=== PATIENT | female | born 1980 | race Caucasian/White ===

== ENCOUNTER 2022-06-06 23:11 | Emergency (ER) | payer OTHER ==
--- OUTSIDE RECORDS SUMMARY | 2022-06-06 23:14 | XMS REPORT | Continuity of Care Document ---
:1980 Author Organization [facility] t Address [address] [place] [address] Care Team Providers Name Role Phone FOUND, PCP NOT Primary Care Physician Unavailable Rebecca Castellanos Attending Clinician DALI WASHINGTON Attending Clinician Unavailable KARLIE SUÁREZ Attending Clinician Unavailable ANGELICA KAUFMAN Attending Clinician Unavailable MONICA BELLA Attending Clinician Unavailable Payers Payer Name Policy Type Policy Number Effective Date Expiration Date S ource Problems Condition Condition Condition Status Onset Resolution Last Treating Co mments Source Name Details Category Date Date Treatment Clinician Date Problem Problem [facility] Allergies, Adverse Reactions, Alerts Allergy Allergy Status Severity Reaction(s) Onset Inactive Treating Comm ents Source Name Type Date Date Clinician Penicill Propensi Active Unknown - Patient Un argelia ins ty to See comments 06-05 reports ity of adverse 00:00: she's [place] reaction 00 been told Medic al s by family Branch she is allergic. PENICILL Drug Active Unknown-Cmnt Un argelia INS Class 9-15 ity of 00:00: [address] Branch NO KNOWN Drug Active Univers ALLERGIE Class ity of S [facility] Social History Social Habit Start Date Stop Date Quantity Comments Source Exposure to 2022-05-26 2022-06-05 Not sure [facility] SARS-CoV-2 (event) 00:00:00 22:34:00 Medica l Branch Sex Ass[birth year] [facility] 00:00:00 00:00:00 Medical Branch Smoking Status Start Date Stop Date Source Tobacco smoking consumption [facility] Medical unknown Branch Smokes tobacco daily 2021-04-29 18:25:[address] [facility] (finding) Current Heavy tobacco smoker 2020-01-31 12:46:00 [facility] Medications Ordered Filled Start Stop Current Ordering Indication Dosage Frequency Signature Comments Components Source Medication Medication Date Date Medication? Clinician (SIG) Name Name cefdinir 2021- Yes 300mg 300 mg, Univ ers (OMNICEF) 06-06 Oral, ity of capsule 300 06:00: 17:59 [place] dose, On [facility] Branch 06/06/22 at 0100, BILLY
Re ason for Anti-Infec tive: Documented Infection< br>Documen kate Infection Site: HEENT
D uration of Therapy: 7 days predniSONE 2021- No 40mg 40 mg, Univ ers (DELTASONE) 06-06 Oral, ity of tablet 40 04:15: 04:26 [place] :[place] dose, On Medical [place] Branch 06/05/22 at 2315, BILLY albuterol 2021- No 2.5mg 2.5 mg, Uni vers (PROVENTIL) 06-06 Inhalation i ty of 2.5 mg /3 04:15: 04:38 , [place] (0.083 00 :00 dose, On Medica l %) [facility] Branch nebulizer 06/05/22 at solution 2315, STAT 2.5 mg ondansetron Yes [id number] 4mg Take 1 Univers 4 mg 06-06 tablet by ity of disintegrat 00:00: mouth [place] ing tablet 00 every 8 Medica l (eight) Branch hours as needed for Nausea and Vomiting (N/V). cefdinir 2021- Yes [id number] 300mg Take 1 Un argelia 300 mg 06-06 capsule by ity of capsule 00:00: 04:59 mouth in [place] 00 :00 the Medical morning Branch and 1 capsule in the evening. Do all this for 7 days. predniSONE 2021- Yes [id number] 40mg Take 2 Univers 20 mg 06-06 tablets by ity of tablet 00:00: 04:59 mouth [place] 00 :00 every Medical morning Branch for 4 days. Promethazin No 5mL Every 4 CHR ISTU e/Codeine 8-09 Hours as S Syrup 18:54: needed for Health (Phenergan- Cough Codeine Syrup) 473 Ml SYRUP Prednisone No 40mg Daily YADIRA U (Deltasone) 8-09 S 20 Mg TAB 18:54: Health 00 Naproxen 2019-0 No 500mg Twice A TRINITY TU (Naprosyn) 5-12 Day as S 500 Mg TAB 13:44: needed for H ealth 00 Pain Oxymetazoli 2019-0 No 2 Twice A CHR ISTU ne Hcl -12 Day S (Afrin 13:44: Health Nasal 00 [place]) 300 [place]/30 Ml SPRAY Naproxen 2019-0 No 500mg [facility]ST[facility] (Naprosyn) 5-12 S [place] 500 Mg TAB 13:44: Area 00 Hospita l Oxymetazoli 2019-0 No 2 YADIRA U ne Hcl 5-12 S [place] (Afrin 13:44: Area Nasal 00 Hospita [place]) 300 l [place]/30 Ml SPRAY Naproxen 2019-0 2020- No 500mg Twice A CHRI VIRIDIANA (Naprosyn) 01-30-12 Day as S 500 Mg TAB 13:44: 00:00 needed for Health 00 :00 Pain Oxymetazoli 2020-0 2020- No 2 Twice A CH RISTU ne Hcl 01-30-12 Day S (Afrin 13:44: 00:00 Health Nasal 00 :00 [place]) 300 [place]/30 Ml SPRAY Ciprofloxac 2018-0 No 4[drp] Twice A C HRISTU in/Dexameth 4-25 Day S asone 07:45: Health (Ciprodex 00 Otic Susp) 120 Drop/7.5 Ml SUSP Ciprofloxac 2018- No 4[drp] Twice A C HRISTU in/Dexameth 4-25 Day S asone 07:45: Health (Ciprodex 00 Otic Susp) 120 Drop/7.5 Ml SUSP Ciprofloxac 0 No 4[drp] Twice A C HRISTU in/Dexameth 01-13 Day S asone 07:45: Health (Ciprodex 00 Otic Susp) 120 Drop/7.5 Ml SUSP Ciprofloxac 0 No 4[drp] CHRI VIRIDIANA in/Dexameth 01-13 S [place] asone 07:45: Area (Ciprodex 00 Hospita Otic Susp) l 120 Drop/7.5 Ml SUSP Ciprofloxac No 4[drp] CHRI VIRIDIANA in/Dexameth 01-13 S [place] asone 07:45: Area (Ciprodex 00 Hospita Otic Susp) l 120 Drop/7.5 Ml SUSP Acetaminoph 2018- No 1tab Every 6 - CHRISTU en/Hydrocod 01-13 8 Hours S one Bitart 07:45: 00:00 for Pain He alth ([place] 00 :00 7.5/325) 1 Tab TABLET Amoxicillin 2018- No 875mg Twice A C HRISTU /Clavulanat 01-13 Day S e Potassium 07:45: 00:00 Healt h (Augmentin 00 :00 875 Mg) 1 Each TABLET Prednisone No 40mg Daily YADIRA U (Deltasone) 4-16 S 20 Mg TAB 20:21: Health 00 Prednisone 0 No 40mg Daily YADIRA U (Deltasone) 4-16 S 20 Mg TAB 20:21: Health 00 Prednisone 0 No 40mg Daily YADIRA U (Deltasone) 4-16 S 20 Mg TAB 20:21: Health 00 Prednisone 0 No 40mg CHRISTU (Deltasone) 4-16 S [place] 20 Mg TAB 20:21: Area 00 Hospita l Prednisone 0 No 40mg CHRISTU (Deltasone) 4-16 S [place] 20 Mg TAB 20:21: Area 00 Hospita l Azithromyci 2018- No 1tab As TRINITY LÓPEZ n 4-16 05-17 Directed S (Zithromax 20:21: 00:00 Health Z-Karthikeyan) 6 00 :00 Tab/Pkg TAB Prednisone 2017-09 No 40mg Daily YADIRA U (Deltasone) 2- S 20 Mg TAB 15:10: Health 00 Prednisone 2017-09 No 40mg Daily YADIRA U (Deltasone) 2-31 S 20 Mg TAB 15:10: Health 00 Prednisone 2017-09 No 40mg Daily YADIRA U (Deltasone) 2-31 S 20 Mg TAB 15:10: Health 00 Prednisone 2017-09 No 40mg CHRISTU (Deltasone) 2- S [place] 20 Mg TAB 15:10: Area 00 Hospita l Prednisone 2017-09 No 40mg CHRISTU (Deltasone) 2-31 S [place] 20 Mg TAB 15:10: Area 00 Hospita l Azithromyci 2017-09- No 250mg Daily CHR ISTU n 10-21 S (Zithromax) 15:10: 00:00 Healt h 250 Mg TAB 00 :00 Promethazin 2017-09- No 10mL Every 6 CH RISTU e 10-21 Hours as S Hcl/Dextrom 15:10: 00:00 needed for Health ethorphan 00 :00 Cough (Phenergan Dm Liq) 118 Ml SYRP Vital Signs Vital Name Observation Time Observation Value Comments Source Systolic blood 2022-06-06 05:13:03 128 mm[Hg] [facility] Diastolic blood 2022-06-06 05:13:03 79 mm[Hg] [facility] Heart rate 2022-06-06 05:13:03 80 /min [facility] Body temperature 2022-06-06 05:13:03 36.5 Francesca [facility] Respiratory rate 2022-06-06 05:13:03 18 /min [facility] Oxygen saturation in 2022-06-06 05:13:03 98 /min [facility] Arterial blood by [facility] Pulse oximetry Branch Body height 2022-06-06 01:56:00 157.5 cm [facility] Body weight 2022-06-06 01:56:00 104.327 kg [facility] BMI 2022-06-06 01:56:00 42.07 kg/m2 [facility] BP Diastolic 2021-04-29 17:55:00 89 mm[Hg] [facility] BP Systolic 2021-04-29 17:55:00 147 mm[Hg] [facility] Heart Rate 2021-04-29 17:55:00 99 /min [facility] Respiratory rate 2021-04-29 17:55:00 18 /min [employer] [facility] Body Temperature 2021-04-29 17:55:00 97.6 [degF] [facility] Heart Rate 2020-01-31 14:04:00 88 /min [facility] BP Systolic 2020-01-31 14:04:00 135 mm[Hg] [facility] BP Diastolic 2020-01-31 14:04:00 74 mm[Hg] [facility] Body Temperature 2020-01-31 12:46:00 98.2 [degF] [facility] Heart Rate 2020-01-31 12:46:00 97 /min [facility] BP Systolic 2020-01-31 12:46:00 138 mm[Hg] [facility] BP Diastolic 2020-01-31 12:46:00 97 mm[Hg] [facility] Weight 2020-01-31 12:46:00 220 [lb_av] [facility] BMI (Body Mass 2020-01-31 12:46:00 40.2 kg/m2 [facility] Health Index) Body Temperature 2019-12-04 23:40:00 97.8 [degF] [employer] Weight 2019-12-04 23:40:00 200 [lb_av] [facility] Health BMI (Body Mass 2019-12-04 23:40:00 36.6 kg/m2 [facility] Health Index) Procedures Procedure Date / Time Performed Performing Clinician Sour e BASIC METABOLIC PANEL 2022-06-06 03:13:00 Rebecca Zayas [facility] (NA, K, CL, CO2, Medical Branch GLUCOSE, BUN, CREATININE, CA) CBC WITH DIFF 2022-06-06 03:13:00 Rebecca Zayas [facility] XR CHEST 2 VW 2022-06-06 03:07:00 Rebecca Zayas [facility] POCT TEST 2022-06-06 03:06:00 Rebecca Zayas [facility] URINALYSIS 2022-06-06 03:05:00 Marquez Rebecca [facility] acute hospital RAPID INFLUENZA A/B 2022-06-06 02:56:00 Rebecca Zayas ty of [facility] COVID-19 (ID NOW RAPID 2022-06-06 02:56:00 Rebecca [facility]as [facility]SE 2022-06-06 02:24:00 Rebecca Zayas o f [place] (AUTOMATED) [facility] CONSENT/REFUSAL FOR 2022-06-06 02:00:47 Doctor Unassigned, No Un [facility] DIAGNOSIS AND Name [facility] TREATMENT Computed tomography of 2020-01-31 00:00:00 iTaggit facial bones without contrast Computed tomography of 2020-01-31 00:00:00 iTaggit head or brain without contrast Plan of Care Planned Activity Planned Date Details Comments Source Goal Patient referral [code [facility] = [id number] ] Hospital Goal Patient referral [code [facility] = [id number] ] Hospital Goal Patient referral [code [facility] = [id number] ] Hospital Goal Patient referral [code [facility] = [id number] ] Hospital Instructions Nose Fracture (DC) [facility] Hospital Encounters Start End Encounter Admission Attending Care Care Encounter Source Date/Time Date/Time Type Type Clinicians Facility Department ID 2021-09-12 Inpatient ZOILA CUMMINGS [id number] [facility] 11:39:00 90 S Health 2022-06-05 2022-06-06 Emergency Marquez [facility] [id number] Univers 21:00:00 00:26:00 [facility] [id number] it y of [place] [id number] [facility] [id number] [address] ([facility]) 2022-06-05 2022-06-06 [facility] [id number] Univers 21:00:00 00:26:00 REBECCA gilmore [facility] 2022-02-23 2022-02-23 Emergency ER ZOILA WASHINGTON [id number] [facility] 09:27:00 11:44:00 MOHAMMAD [address] S Health 2022-02-11 2022-02-11 Emergency ER ZOILA SUÁREZ [id number] [facility] 15:02:00 16:36:00 KARLIE 49 S Health 2021-04-29 2021-04-29 Departed ZOILA CUMMINGS [id number] [facility] 17:28:00 18:58:00 Emergency [address] S Room [facility] 2020-01-31 2020-01-31 Departed ANA PAULA CUMMINGS [id number] [facility] 12:19:00 14:00:00 Emergency [facility] 2020-01-31 2020-01-31 Departed ZOILA KAUFMAN [id number] [facility] 12:19:00 14:00:00 Emergency ANGELICA [address] [facility] 2019-12-04 2019-12-05 Departed ANA PAULA CUMMINGS [id number] [facility] 23:38:00 01:15:00 Emergency [facility] 32 [facility] 2019-12-04 2019-12-05 Departed MONICA BELLA LA0 [id number] [facility] 23:38:00 01:15:[address] [place] [address] Results Test Description Test Time Test Comments Results Result Comments Source BASIC METABOLIC PANEL (NA, K, CL, CO2, GLUCOSE, BUN, 2022-05 04:33:37 CREATININE, CA) Test Item Value Reference Range Interpretation Comme nts NA (test code = 5192064471) 135 mmol/L 135-145 K (test code = 4732653954) 4.2 mmol/L 3.5-5 CL (test code = 2253846511) 104 mmol/L 98-108 CO2 TOTAL (test code = 5217321694) 22 mmol/L 23-31 L AGAP (test code = 8736807965) 2-16 BUN (test code = 5593820200) 12 mg/dL 7-23 GLUCOSE (test code = 8902171303) 162 mg/dL 70-110 H CREATININE (test code = 0.60 mg/dL 0.5-1.04 3155404108) CALCIUM (test code = 9880858510) 8.5 mg/dL 8.6-10.6 L eGFR (test code = 3455392241) mL/min/1.73m2 JOSIE (test code = JOSIE) Association of Glomerular Filtration Rate (GFR) and Staging of Kidney Disease* + +-------- + ------+| GFR (mL/min/1.73 m2) ?| With Kidney Damage ?| ?Without Kidney Damage+ +-- + +| ?>90 ?| ?Stage one ?| ? Normal ?+ +------- + -------+| ?60-89 ?| ?Stage two ?| ? Decreased GFR ? + +-------- + ------+| ?30-59 ?| ?Stage three ?| ? Stage three ? + +-------- + ------+| ?15-29 ?| ?Stage four ? | ? Stage four ?+ +------- + -------+| ?<15 (or dialysis) ? ?| ?Stage five ? | ? Stage five ?+ +------- + -------+ *Each stage assumes the associated GFR level has been in effect for at least three months. ?Stages 1 to 5, with or without kidney disease, indicate chronic kidney disease. Notes: Determination of stages one and two (with eGFR >59mL/min/1.73 m2) requires estimation of kidney damage for at least three months as defined by structural or functional abnormalities of the kidney, manifested by either:Pathological abnormalities or Markers of kidney damage (including abnormalities in the composition of the blood or urine or abnormalities in imaging tests). Lab Interpretation (test code = Abnormal 88042-4) [facility] WITH [id number] 04:13:19 Test Item Value Reference Range Interpretation Comments WBC (test code = See_Comment H [Automated 4121-2) message] The sy stem which generated this result transmitted reference range : 4.30 - 11.10 10*3/?L. The reference range was not used to interpret this result as normal/abnormal . RBC (test code = See_Comment [Automated 112-8) message] The sy stem which generated this result transmitted reference range : 3.93 - 5.25 10*6/?L. The reference range was not used to interpret this result as normal/abnormal . HGB (test code = 13.2 g/dL 11.6-15 718-7) HCT (test code = 38.9 % 35.7-45.2 4544-3) MCV (test code = 83.1 fL 80.6-95.5 787-2) MCH (test code = 28.2 pg 25.9-32.8 785-6) MCHC (test code = 33.9 g/dL 31.6-35.1 786-4) RDW-SD (test code = 41.5 fL 39-49.9 90012-3) RDW-CV (test code = 13.7 % 12-15.5 788-0) PLT (test code = See_Comment [Automated 777-3) message] The sy stem which generated this result transmitted reference range : 166 - 358 10*3/ ?L. The reference r aliyah was not used to interpret this result as normal/abnormal . MPV (test code = 10.6 fL 9.5-12.9 85361-5) NRBC/100 WBC (test See_Comment [Automat ed code = 8668444379) message] The system which generated this result transmitted reference range : 0.0 - 10.0 /100 WBCs. The refer ence range was not u sed to interpret th is result as normal/abnormal . NRBC x10^3 (test code See_Comment [Auto mated = 0293708021) message] The s ystem which generated this result transmitted reference range : 10*3/?L. The reference range was not used to interpret this result as normal/abnormal . GRAN MAT (NEUT) % 56.4 % (test code = 770-8) IMM GRAN % (test code 0.40 % = 7826128773) LYMPH % (test code = 29.3 % 736-9) MONO % (test code = 6.2 % 5905-5) EOS % (test code = 7.2 % 713-8) BASO % (test code = 0.5 % 706-2) GRAN MAT x10^3(ANC) 7.22 10*3/uL 1.88-7.09 H (test code = 4551042540) IMM GRAN x10^3 (test 0.05 10*3/uL 0-0.06 code = 5150613818) LYMPH x10^3 (test code 3.76 10*3/uL 1.32-3.29 H = 731-0) MONO x10^3 (test code 0.80 10*3/uL 0.33-0.92 = 742-7) EOS x10^3 (test code = 0.93 10*3/uL 0.03-0.39 H 711-2) BASO x10^3 (test code 0.07 10*3/uL 0.01-0.07 = 704-7) Lab Interpretation Abnormal (test code = 43942-2) [facility] [id number] 03:06:00 Test Item Value Reference Range Interpretation Comments POCT PREG (test code = 1605) Negative On board controls acceptable with Present C Line (test code = 3574) POCT PREG LOT # (test code = 3575) [id number] POCT PREG TEST DATE (test 2023-08-20 code = 3576) Lab Interpretation (test code = Normal 78943-7) [facility] GLUCOSE (AUTOMATED)2022-06-06 02:25:59 Test Item Value Reference Range Interpretation Comments POCT GLU (test code = 6436350802) 170 mg/dL 70-110 H Lab Interpretation (test code = Abnormal 35434-2) [facility] Streptococcus detection 2021-04-29 18:23:00 Test Item Value Reference Range Interpretation Comments Group A Streptococcus Screen (test Negative Negative code = 67075-2) [facility]"
[2022-06-06] MEDS ORDERED: METHYLPREDNISOLONE 125 MG INJ ONE (23:39)
[2022-06-06] MEDS ORDERED: ALBUTEROL 2.5 MG/3 ML NEB SOL ONE (23:39)
[2022-06-06] MEDS ORDERED: IPRATROPIUM BROM 0.5MG/2.5ML ONE (23:39)
[2022-06-06] MEDS ORDERED: NA CHLORIDE 0.9% 500 ML ONE (23:51)
[2022-06-07] MEDS ORDERED: LEVALBUTEROL 1.25 MG/3 ML NEB ONE (01:27)
--- NOTE | 2022-06-07 01:57 | ER ---
Nurse's Notes [facility] Name: Mariposa Morrell Age: 41 yrs Sex: Female : 1980 Arrival Date: 06/06/2022 Time: 23:12 Bed 3 Private MD: Diagnosis: Unspecified asthma with (acute) exacerbation;Otitis media, unspecified, left ear Presentation: 06/06 23:41 Chief complaint: Patient states: "I started having trouble breathing yesterday, I went vc1 to [facility] they diagnosed me with bronchitis and an ear infection. Today it is worse and I just can't breath.". Coronavirus screen: Vaccine status:. Ebola Screen: No symptoms or risks identified at this time. Initial Sepsis Screen: Does the patient meet any 2 criteria? No. Patient's initial sepsis screen is negative. Does the patient have a suspected source of infection? No. Patient's initial sepsis screen is negative. Risk Assessment: Do you want to hurt yourself or someone else? Patient reports no desire to harm self or others. Onset of symptoms was June 05, 2022. 23:41 Method Of Arrival: Ambulatory vc1 23:41 Acuity: KILO 3 vc1 Triage Assessment: 23:44 General: Appears distressed, Behavior is cooperative. Pain: Denies pain. Neuro: Level vc1 of Consciousness is awake, alert, obeys commands, Oriented to person, place, time, situation, Appropriate for age. Cardiovascular: No deficits noted. Respiratory: Reports shortness of breath at rest Airway is patent Respiratory effort is even, unlabored, Respiratory pattern is regular, symmetrical, Onset: The symptoms/episode began/occurred gradually, the patient has moderate shortness of breath. GI: No signs and/or symptoms were reported involving the gastrointestinal system. : No deficits noted. Derm: No deficits noted. No signs and/or symptoms reported regarding the dermatologic system. Musculoskeletal: No deficits noted. No signs and/or symptoms reported regarding the musculoskeletal system. Historical: - Allergies: 23:43 No Known Allergies; vc1 - PMHx: 23:43 Asthma; Diabetes mellitus; High Cholesterol; vc1 - PSHx: 23:43 None; vc1 - Immunization history:: Adult Immunizations up to date. - Social history:: Smoking status: Patient denies any tobacco usage or history of. Screenin:44 Abuse screen: Denies threats or abuse. Nutritional screening: No deficits noted. vc1 Nutritional screening: No deficits noted. Tuberculosis screening: No symptoms or risk factors identified. Fall Risk None identified. Assessment: 06/07 00:30 Reassessment: Pt appears to be more relaxed, respirations remain tachypneic but are now jb4 unlabored. no s/s of pain or distress noted. 01:30 Reassessment: Patient appears in no apparent distress at this time. Patient and/or jb4 family updated on plan of care and expected duration. Pain level reassessed. Patient is alert, oriented x 3, equal unlabored respirations, skin warm/dry/pink. 02:27 Reassessment: Patient appears in no apparent distress at this time. Patient and/or jb4 family updated on plan of care and expected duration. Pain level reassessed. Patient is alert, oriented x 3, equal unlabored respirations, skin warm/dry/pink. Vital Signs: 06/06 23:41 BP 158 / 96; Pulse 92; Resp 30; Pulse Ox 100% ; Weight 99.79 kg; Height 5 ft. 2 in. vc1 (157.48 cm); 06/07 01:45 BP 119 / 55; Pulse 117; Resp 22; Pulse Ox 95% on R/A; jb4 06/06 23:41 Body Mass Index 40.24 (99.79 kg, 157.48 cm) vc1 ED Course: 06/06 23:12 Patient arrived in ED. bp1 23:23 Kaushik Dean PA is PHCP. cp 23:23 Kaushik Enamorado MD is Attending Physician. cp 23:43 Triage completed. vc1 23:45 Arm band placed on right wrist. vc1 23:45 Inserted saline lock: 18 gauge in right antecubital area, using aseptic technique. By jose angel Tapia RN. 23:49 Lidia Dudley, GREG is Primary Nurse. ke1 06/07 00:12 XRAY Chest (1 view) In Process Unspecified. EDMS 02:27 No provider procedures requiring assistance completed. IV discontinued, intact, jb4 bleeding controlled, No redness/swelling at site. Pressure dressing applied. Administered Medications: 06/06 23:40 Drug: Albuterol - atroVENT (ipratropium) (3:1) (2.5 mg - 0.5 mg) 3 ml Route: Nebulizer; vc1 23:40 Drug: SOLU-Medrol (methylPrednisoLONE) 125 mg Route: IVP; Site: right forearm; vc1 23:50 Drug: NS 0.9% 500 ml Route: IV; Rate: bolus; Site: right forearm; ke1 06/07 01:21 Drug: Xopenex (levalbuterol) (3) 1.25 mg Route: Inhalation; jb4 02:17 Drug: Albuterol HFA Inhaler 2 puffs Route: Inhalation; jb4 02:17 Drug: Tussionex Pennkinetic ER (chlorpheniramine-hydrocodone) Suspension 5 ml Route: PO;jb4 02:18 Follow up: Response: Medication administered at discharge. jb4 02:17 Drug: Tylenol 1000 mg Route: PO; jb4 02:18 Follow up: Response: Medication administered at discharge. jb4 Outcome: 01:56 Discharge ordered by MD. cp 02:27 Discharged to home ambulatory, with family. jb4 02:27 Condition: stable 02:27 Discharge instructions given to patient, Instructed on discharge instructions, follow up and referral plans. medication usage, Demonstrated understanding of instructions, follow-up care, medications, Prescriptions given X 6 02:27 Patient left the ED. jb4 Signatures: Dispatcher [employer] EDMS Kaushik Dean PA PA cp Bryson, James, RN RN jb4 Rere Potter Vanessa, RN RN vc1 Lidia Dudley RN RN ke1
--- NOTE | 2022-06-07 01:57 | EDPHYS ---
Physician Documentation [facility] Name: Mariposa Morrell Age: 41 yrs Sex: Female : 1980 Arrival Date: 06/06/2022 Time: 23:12 Bed 3 Private MD: ED Physician Kaushik Enamorado HPI: 06/06 23:40 This 41 yrs old Female presents to ER via Ambulatory with complaints of Breathing cp Difficulty, Asthma Exacerbation, Cough. 23:40 The patient has shortness of breath at rest. Onset: The symptoms/episode began/occurred cp yesterday, and became worse today. 23:40 Duration: The symptoms are continuous, and are steadily getting worse. cp 23:40 Associated signs and symptoms: Pertinent positives: non-productive cough, Pertinent cp negatives: chest pain, fever, vomiting. Severity of symptoms: in the emergency department the symptoms are unchanged despite home interventions. 23:40 The patient has been recently seen by a physician: in [facility], yesterday, with similar cp presenting complaints, and apparently given a diagnosis of ear infection, bronchitis. Historical: - Allergies: 23:43 No Known Allergies; vc1 - PMHx: 23:43 Asthma; Diabetes mellitus; High Cholesterol; vc1 - PSHx: 23:43 None; vc1 - Immunization history:: Adult Immunizations up to date. - Social history:: Smoking status: Patient denies any tobacco usage or history of. ROS: 23:45 Constitutional: Negative for body aches, chills, fever, poor PO intake. cp 23:45 Cardiovascular: Negative for chest pain, edema, palpitations. cp 23:45 Respiratory: Positive for cough, with no reported sputum, shortness of breath, at rest. wheezing, Negative for hemoptysis. Exam: 23:50 Constitutional: The patient appears in no acute distress, alert, awake, cp non-diaphoretic, non-toxic, well developed, well nourished. 23:50 Head/Face: Normocephalic, atraumatic. cp 23:50 Eyes: Periorbital structures: appear normal, Conjunctiva: normal, no exudate, no injection, Sclera: no appreciated abnormality, Lids and lashes: appear normal, bilaterally. 23:50 ENT: External ear(s): are unremarkable, Nose: is normal, Mouth: Lips: moist, Oral mucosa: pink and intact, moist, Posterior pharynx: Airway: no evidence of obstruction, patent, Tonsils: are normal in appearance, erythema, is not appreciated, exudate, is not appreciated. 23:50 Neck: ROM/movement: is normal, is supple, without pain, no range of motions limitations, no meningismus. 23:50 Chest/axilla: Inspection: normal, Palpation: is normal, no crepitus, no tenderness. 23:50 Cardiovascular: Rate: normal, Rhythm: regular, Edema: is not appreciated, JVD: is not appreciated. 23:50 Respiratory: the patient does not display signs of respiratory distress, Respirations: normal, no use of accessory muscles, no retractions, labored breathing, is not present, Breath sounds: decreased breath sounds, that are mild, throughout, stridor, is not appreciated, wheezing: that is moderate, is heard diffusely. 23:50 Abdomen/GI: Inspection: abdomen appears normal, Palpation: abdomen is soft and non-tender, in all quadrants. 23:50 Back: pain, is absent, ROM is normal. 23:50 Neuro: Orientation: to person, place \\T\\ time. Mentation: is normal, Motor: moves all fours, strength is normal, Sensation: is normal. Vital Signs: 23:41 BP 158 / 96; Pulse 92; Resp 30; Pulse Ox 100% ; Weight 99.79 kg; Height 5 ft. 2 in. vc1 (157.48 cm); 06/07 01:45 BP 119 / 55; Pulse 117; Resp 22; Pulse Ox 95% on R/A; jb4 06/06 23:41 Body Mass Index 40.24 (99.79 kg, 157.48 cm) vc1 MDM: 06/06 23:23 Patient medically screened. cp 23:45 Differential diagnosis: asthma, Bronchitis pneumonia, Pneumothorax pulmonary edema, cp Pulmonary Embolism reactive airway disease. Test interpretation: by ED physician or midlevel provider: plain radiologic studies. 06/07 01:55 Data reviewed: vital signs, nurses notes, lab test result(s), radiologic studies, plain cp films. 01:55 Counseling: I had a detailed discussion with the patient and/or guardian regarding: the cp historical points, exam findings, and any diagnostic results supporting the discharge/admit diagnosis, lab results, radiology results, the need for outpatient follow up, a family practitioner, to return to the emergency department if symptoms worsen or persist or if there are any questions or concerns that arise at home. 01:55 Response to treatment: the patient's symptoms have markedly improved after treatment, cp and as a result, I will discharge patient. ED course: VSS. Patient appears non-toxic and no signs of respiratory distress. Will discharge to home for continued monitoring. 06/06 23:33 Order name: COVID-19 SARS RT PCR (Document "Date of Onset" if Symptomatic); Complete cp Time: 00:35 06/07 00:35 Interpretation: Reviewed. cp 06/06 23:33 Order name: Influenza Screen (a \\T\\ B); Complete Time: 00:35 cp 06/07 00:36 Interpretation: Reviewed. cp 06/06 23:33 Order name: XRAY Chest (1 view) cp 06/06 23:34 Order name: IV; Complete Time: 23:40 cp Administered Medications: 06/06 23:40 Drug: Albuterol - atroVENT (ipratropium) (3:1) (2.5 mg - 0.5 mg) 3 ml Route: Nebulizer; vc1 23:40 Drug: SOLU-Medrol (methylPrednisoLONE) 125 mg Route: IVP; Site: right forearm; vc1 23:50 Drug: NS 0.9% 500 ml Route: IV; Rate: bolus; Site: right forearm; ke1 06/07 01:21 Drug: Xopenex (levalbuterol) (3) 1.25 mg Route: Inhalation; jb4 02:17 Drug: Albuterol HFA Inhaler 2 puffs Route: Inhalation; jb4 02:17 Drug: Tussionex Pennkinetic ER (chlorpheniramine-hydrocodone) Suspension 5 ml Route: PO;jb4 02:18 Follow up: Response: Medication administered at discharge. jb4 02:17 Drug: Tylenol 1000 mg Route: PO; jb4 02:18 Follow up: Response: Medication administered at discharge. jb4 Disposition Summary: 06/07/22 01:56 Discharge Ordered Location: Home cp Problem: new cp Symptoms: have improved cp Condition: Stable cp Diagnosis - Unspecified asthma with (acute) exacerbation cp - Otitis media, unspecified, left ear cp Followup: cp - With: Private Physician - When: 2 - 3 days - Reason: Recheck today's complaints Discharge Instructions: - Discharge Summary Sheet cp - Asthma, Adult cp - Otitis Media, Adult cp Forms: - Medication Reconciliation Form cp - Thank You Letter cp - Antibiotic Education cp - Prescription Opioid Use cp - Work release form jb4 Prescriptions: - albuterol sulfate 90 mcg/actuation Inhalation HFA aerosol inhaler - inhale 1 puff by INHALATION route every 4-6 hours; 1 Inhaler; Refills: 0, cp Product Selection Permitted - NEBULIZER - inhale 1 unit by INHALATION route every 4-6 hours please add 2 sets of adult cp tubing with masks; 1 Device; Refills: 0, Product Selection Permitted - Bromfed DM 2-30-10 mg/5 mL Oral syrup - take 10 milliliter by ORAL route every 6 hours; 180 milliliter; Refills: 0, cp Product Selection Permitted - Prednisone 20 mg Oral Tablet - take 3 tablets by ORAL route once daily for 5 days; 15 tablet; Refills: 0, cp Product Selection Permitted - Albuterol Sulfate 2.5 mg /3 mL (0.083 %) Inhalation Solution for Nebulization - inhale 1 unit by NEBULIZATION route every 8 hours As needed; 1 box; Refills: 0, cp Product Selection Permitted - Zithromax Z-Karthikeyan 250 mg Oral Tablet - take 1 tablet by ORAL route as directed for 5 days Day 1 - take two (2) tablets cp one time. Day 2, 3, 4 , 5 take one (1) tablet once daily.; 6 tablet; Refills: 0, Product Selection Permitted Signatures: Dispatcher [employer] EDKaushik Wise PA PA cp Bryson, James RN RN jb4 Zoraida Diana RN RN vc1 Lidia Dudley RN RN ke1
[2022-06-07] MEDS ORDERED: ALBUTEROL INHALER 60 PUFF/8 GM IH ONE (02:19)
[2022-06-07] MEDS ORDERED: ACETAMINOPHEN 500 MG TAB ONE (02:20)
[2022-06-07] MEDS ORDERED: HYDROCODONE/CHLORPHEN 5 ML/OSYR ONE (02:20)
--- NOTE | 2022-06-07 21:07 | RAD REPORT ---
EXAM DESCRIPTION: RAD - Chest Single View - 06/07/2022 12:08 am CLINICAL HISTORY: years Female, COUGH COMPARISON: Chest radiograph dated 02/11/2022 FINDINGS: No focal lung consolidation. No pleural effusion. No pneumothorax. Cardiomediastinal silhouette is within normal limits. No acute osseous abnormality. IMPRESSION: No acute cardiopulmonary disease. Electronically signed by: Hung Palmer DO 06/07/2022 12:34 AM CDT Due to temporary technical issues with the PACS/Fluency reporting system, reports are being signed by the in house radiologists without review as a courtesy to insure prompt reporting. The interpreting radiologist is fully responsible for the content of the report.
[2022-06-08 12:57] VITALS: BP 119/55; O2SAT 95
== END 2022-06-07 02:27 | disposition home or self-care (01) ==
LOC: ER 23:11
DX: J45.901 Unspecified asthma with (acute) exacerbation (principal); H66.92 Otitis media, unspecified, left ear; Z20.822 Contact with and (suspected) exposure to COVID-19
CPT/HCPCS: 87804 ×2; 71045; 94640; 96374; 99284; U0003; J7614; J7040; J2930